=== PATIENT | female | born 1960 | race Caucasian/White ===

== ENCOUNTER → 2019-02-19 14:09 | Emergency (ER) | payer SELFPAY ==
[~2019-02-19 14:09] MED LIST: Acetaminophen TAB* 325 MG PO ONE; Bupivacaine 0.25% SDV* 30 ML INJ ONE; DOXYcycline CAP(*) 100 MG PO ONE
--- NOTE | 2019-02-19 14:35 | ED ---
Upper Extremity Pain - HPI Summary HPI Summary: Pt is a 58 y/o F presenting to the ED with a chief complaint of L hand pain. She fell two days ago when she tripped down some stairs, and also hit the top of her head on the way down. She went to [email or web address] walk-in who stated they could not fix dislocations, so they sent her here. - History of Current Complaint Chief Complaint: EDExtremityUpper Stated Complaint: DISLOCATED FINGER ON LEFT HAND PER PT Time Seen by Provider: 02/19/19 14:19 Hx Obtained From: Patient Mechanism Of Injury: Fall From A Standing Position Onset/Duration: Started Days Ago, Still Present Timing: Constant, Lasting Days Severity Initially: Moderate Severity Currently: Moderate Pain Location: Hand - left Character: Aching Aggravating Factor(s): Movement Alleviating Factor(s): Nothing Associated Signs & Symptoms: Positive: Swelling - Allergies/Home Medications Allergies/Adverse Reactions: Allergies Allergy/AdvReac Type Severity Reaction Status Date / Time MS Latex [Latex] Allergy Severe Swelling Verified 08/15/14 18:31 MS Penicillins [Penicillins] Allergy Severe Anaphylatic Verified 08/15/14 18:31 Shock MS Levofloxacin Allergy See Comment Verified 08/21/15 12:27 [From Levaquin] MS Morphine [Morphine] AdvReac Mild Nausea And Verified 08/15/14 18:31 Vomiting Home Medications: Home Medications Venlafaxine EXT RELEASE CAP* [Effexor Xr CAP*] 150 mg PO DAILY 02/19/19 [ History Confirmed 02/19/19] PMH/Surg Hx/FS Hx/Imm Hx Previously Healthy: Yes Endocrine/Hematology History: Denies: Hx Diabetes Cardiovascular History: Denies: Hx Hypertension Psychiatric History: Denies: Hx Eating Disorder, Hx of Violent Episodes Against Others Infectious Disease History: No Infectious Disease History: Denies: Traveled Outside the [place] in Last 30 Days - Family History Known Family History: Negative: Respiratory Disease - Social History Alcohol Use: Occasionally Hx Substance Use: No Substance Use Type: Reports: None Hx Tobacco Use: No Smoking Status (MU): Never Smoked Tobacco Review of Systems Positive: Myalgia, Decreased ROM, Edema Positive: Headache All Other Systems Reviewed And Are Negative: Yes Physical Exam - Summary Physical Exam Summary: Appearance: The patient is well-nourished in no acute distress and in no acute pain. Skin: The skin is warm and dry and skin color reflects adequate perfusion. HEENT: The head is normocephalic and atraumatic. The pupils are equal and reactive. The conjunctivae are clear and without drainage. Nares are patent and without drainage. Mouth reveals moist mucous membranes and the throat is without erythema and exudate. The external ears are intact. The ear canals are patent and without drainage. The tympanic membranes are intact. Neck: The neck is supple with full range of motion and non-tender. There are no carotid bruits. There is no neck vein distension. Respiratory: Chest is non-tender. Lungs are clear to auscultation and breath sounds are symmetrical and equal. Cardiovascular: Heart is regular rate and rhythm. There is no murmur or rub auscultated. There is no peripheral edema and pulses are symmetrical and equal. Abdomen: The abdomen is soft and non-tender. There are normal bowel sounds heard in all four quadrants and there is no organomegaly palpated. Musculoskeletal: There is no back tenderness noted. Extremities are non-tender with full range of motion. There is good capillary refill. There is no peripheral edema or calf tenderness elicited. 5th L finger surgically removed. 4th finger swollen over MPJ up to the PIP Neurological: Patient is alert and oriented to person, place and time. The patient has symmetrical motor strength in all four extremities. Cranial nerves are grossly intact. Deep tendon reflexes are symmetrical and equal in all four extremities. Psychiatric: The patient has an appropriate affect and does not exhibit any anxiety or depression. Triage Information Reviewed: Yes Vital Signs On Initial Exam: Initial Vitals Temp Pulse Resp BP Pulse Ox 98.7 F 80 20 145/92 99 02/19/19 14:11 02/19/19 14:11 02/19/19 14:11 02/19/19 14:11 02/19/19 14:11 Vital Signs Reviewed: Yes Procedures - Joint Reduction Left Joint Reduction Site: other Specify Other Joint Reduced: L fourth proximal interphalageal joint Conscious Sedation: No Reduction Attempts: 1 Post Joint Reduction Film: joint reduced Diagnostics - Vital Signs Vital Signs Temp Pulse Resp BP Pulse Ox 02/19/19 14:11 98.7 F 80 20 145/92 99 - Laboratory Lab Statement: Any lab studies that have been ordered have been reviewed, and results considered in the medical decision making process. - Radiology L hand XR Radiology Interpretation Completed By: Radiologist Summary of Radiographic Findings: Dislocation of the fourth proximal interphalangeal joint. ED physician has reviewed this report. Course/Dx - Course Course Of Treatment: Ms. Peacock apparently fell down a couple of steps a day and a half ago hurting the fourth finger on her left hand. 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 This is remote by a couple of years. She went to a walk-in clinic and was sent here. There is no sign of an infection clinically in her hand at this time. She has some mild swelling over the PIP and the MPJ of her fourth finger. Distal neurovascular and motor are intact. There is a small puncture wound over the volar PIP. X-ray was obtained and showed a dislocated PIP with no fracture. She was digitally blocked with bupivacaine and the finger was reduced. She tolerated it well. She was splinted and I spoke with Dr. Knox electronics computer mechanic for orthopedics. I don't see any evidence for infection now but I think she needs prophylactic antibiotics because this was technically open. I spoke with Dr. Knox to make sure she would not need to go to the operating room to be washed out. She agreed with the plan of splinting and antibiotics and will see her Saturday morning. The patient will return to the emergency department if she is worsening in any way. - Diagnoses Provider Diagnoses: Open finger dislocation Discharge - Sign-Out/Discharge Documenting (check all that apply): Patient Departure Patient Received Moderate/Deep Sedation with Procedure: No - Discharge Plan Condition: Stable Disposition: HOME Prescriptions: DOXYcycline CAP(*) [DOXYcycline 100MG CAP(*)] 100 mg PO BID #20 cap Referrals: Shmuel Licea MD [Primary Care Provider] - Josefina Knox MD [Medical Doctor] - Additional Instructions: Please follow up with Dr. Knox on 02/23/19. Return to the ED with any new or worsening symptoms. - Billing Disposition and Condition Condition: STABLE Disposition: Home - Attestation Statements Document Initiated by Scribe: Yes Documenting Scribe: Catarina Sue Provider For Whom Wilmeribe is Documenting (Include Credential): Scott Hatfield MD. Scribe Attestation: Catarina Yao, scribed for Scott Hatfield MD. on 02/19/19 at 2017. Scribe Documentation Reviewed: Yes Provider Attestation: The documentation as recorded by the scribe, Catarina Sue accurately reflects the service I personally performed and the decisions made by me, Scott Hatfield MD. Status of Scribe Document: Viewed Consult Consult: [id number] Knox about the pts present condition who recommended a splint and having the patient follow up with her on 02/23/19.
[2019-02-19 16:59] VITALS: BP 156/83
== END | disposition home or self-care (01) ==
LOC: ED 14:09
DX: S63.285A Dislocation of proximal interphalangeal joint of left ring finger, initial encounter (principal); W10.9XXA Fall (on) (from) unspecified stairs and steps, initial encounter; Z88.0 Allergy status to penicillin; Z88.5 Allergy status to narcotic agent; Z88.8 Allergy status to other drugs, medicaments and biological substances; Z91.040 Latex allergy status
CPT/HCPCS: 26770; 96372; 99282; A9270-GY; J3490